=== PATIENT | female | born 1990 | race African-American/Black ===

== ENCOUNTER 2021-03-10 19:17 | Emergency (ER) | payer SELFPAY ==
--- NOTE | 2021-03-10 19:42 | ER ---
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 Reports HX of seizure. Coronavirus screen: Client denies travel out of the [place] in the last 14 days. At this time, the client does not indicate any symptoms associated with coronavirus-19. Ebola Screen: Patient negative for fever greater than or equal to 101.5 degrees Fahrenheit, and additional compatible Ebola Virus Disease symptoms Patient denies exposure to infectious person. Patient denies travel to an Ebola-affected area in the 21 days before illness onset. No symptoms or risks identified at this time. Initial Sepsis Screen: Does the patient meet any 2 criteria? No. Patient's initial sepsis screen is negative. Does the patient have a suspected source of infection? No. Patient's initial sepsis screen is negative. Risk Assessment: Do you want to hurt yourself or someone else? Patient reports no desire to harm self or others. Onset of symptoms was March 10, 2021. 19:22 Method Of Arrival: EMS: [facility] ca1 19:22 Acuity: GERRI 4 ca1 Triage Assessment: 19:24 General: Appears in no apparent distress. comfortable, Behavior is calm, cooperative, ca1 appropriate for age. Pain: Complains of pain in scalp Pain currently is 6 out of 10 on a pain scale. Neuro: Level of Consciousness is awake, alert, obeys commands, Oriented to person, place, time, situation. Cardiovascular: Heart tones S1 S2 present Capillary refill < 3 seconds Patient's skin is warm and dry. Respiratory: Airway is patent Respiratory effort is even, unlabored, Breath sounds are clear bilaterally. GI: Abdomen is flat, non-distended, Bowel sounds present X 4 quads. Abd is soft and non tender X 4 quads. : No signs and/or symptoms were reported regarding the genitourinary system. Derm: Skin is intact, is healthy with good turgor, Skin is pink, warm \\T\\ dry. Musculoskeletal: Circulation, motion, and sensation intact. Capillary refill < 3 seconds. 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 - Social history:: Smoking status: Patient reports the use of cigarette tobacco products, smokes one pack cigarettes per day. - Family history:: not pertinent. Screenin:26 Abuse screen: Denies threats or abuse. Denies injuries from another. Nutritional ca1 screening: No deficits noted. Tuberculosis screening: No symptoms or risk factors identified. Fall Risk Secondary diagnosis (15 points) seizures. Assessment: 19:26 Reassessment: see triage notes. ca1 19:39 Reassessment: Pt with family. Walk out of the room and was heading out. Dr. Orellana ca1 spoke with pt and family. Pt refused test and states, "I am going to check myself out and will have an appointment with my PCP in [place]". Psych: 19:41 [place] Suicide Severity Screening: unable to obtain, pt refused test and discharged. ca1 Vital Signs: 19:25 BP 111 / 75; Pulse 80; Resp 16 S; Pulse Ox 100% on R/A; Weight 58.97 kg (R); Height 5 ca1 ft. 5 in. (165.10 cm) (R); 19:26 BP 111 / 78 RA Supine (auto/reg); Pulse 77 RA; Resp 18 S; Pulse Ox 100% on R/A; mb4 19:43 Temp 98.6(TE); ca1 19:25 Body Mass Index 21.63 (58.97 kg, 165.10 cm) ca1 ED Course: 19:18 Patient arrived in ED. cf2 19:21 Brooke Garcia, RN is Primary Nurse. ca1 19:23 Triage completed. ca1 19:24 Arm band placed on right wrist. ca1 19:26 Bed in low position. Call light in reach. Side rails up X 1. Warm blanket given. mb4 19:26 Seizure precautions initiated. ca1 19:26 No provider procedures requiring assistance completed. ca1 19:33 Saeed Orellana MD is Attending Physician. anna 19:40 Chi Weber MD is Referral Physician. [facility] Administered Medications: No medications were administered Outcome: 19:41 Discharge ordered by . anna 19:43 Discharged to home ambulatory, with family. em 19:43 Condition: stable 19:43 Discharge instructions given to patient, Instructed on discharge instructions, follow up and referral plans. Demonstrated understanding of instructions, follow-up care. 19:43 Patient left the ED. em Signatures: Saeed Orellana MD MD cha Munoz, Edgar RN RN Adela Reeves mb4 Brooke Garcia RN RN [facility] Pranav Trindiad 2
--- NOTE | 2021-03-10 19:42 | EDPHYS ---
Physician Documentation [facility] Name: Iris Schaefer Age: 30 yrs Sex: Female : 1990 Arrival Date: 03/10/2021 Time: 19:18 Bed 23 Private MD: ED Physician Saeed Orellana HPI: 03/10 19:39 This 30 yrs old Black Female presents to ER via EMS with complaints of Psych Problem, anna Probable Seizure. 19:39 The patient presents to the emergency department with anxiety, over unknown anna circumstances. Onset: The symptoms/episode began/occurred just prior to arrival. Past psychiatric history: Prior diagnosis: no previous psychiatric diagnosis known. Associated signs and symptoms: The patient has no apparent associated signs or symptoms. Severity of symptoms: At their worst the symptoms were mild in the emergency department the symptoms are unchanged. The patient has experienced similar episodes in the past, a few times. 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 - Social history:: Smoking status: Patient reports the use of cigarette tobacco products, smokes one pack cigarettes per day. - Family history:: not pertinent. ROS: 19:39 Constitutional: Negative for fever, chills, and weight loss, Eyes: Negative for injury, anna pain, redness, and discharge, ENT: Negative for injury, pain, and discharge, Neck: Negative for injury, pain, and swelling, Cardiovascular: Negative for chest pain, palpitations, and edema, Respiratory: Negative for shortness of breath, cough, wheezing, and pleuritic chest pain, Abdomen/GI: Negative for abdominal pain, nausea, vomiting, diarrhea, and constipation, Back: Negative for injury and pain, : Negative for injury, bleeding, discharge, and swelling, MS/Extremity: Negative for injury and deformity, Skin: Negative for injury, rash, and discoloration, Neuro: Negative for headache, weakness, numbness, tingling, and seizure, Psych: Negative for depression, anxiety, suicide ideation, homicidal ideation, and hallucinations, Allergy/Immunology: Negative for hives, rash, and allergies, Endocrine: Negative for neck swelling, polydipsia, polyuria, polyphagia, and marked weight changes, Hematologic/Lymphatic: Negative for swollen nodes, abnormal bleeding, and unusual bruising. Exam: 19:39 Constitutional: This is a well developed, well nourished patient who is awake, alert, anna and in no acute distress. Head/Face: Normocephalic, atraumatic. Eyes: Pupils equal round and reactive to light, extra-ocular motions intact. Lids and lashes normal. Conjunctiva and sclera are non-icteric and not injected. Cornea within normal limits. Periorbital areas with no swelling, redness, or edema. ENT: Nares patent. No nasal discharge, no septal abnormalities noted. Tympanic membranes are normal and external auditory canals are clear. Oropharynx with no redness, swelling, or masses, exudates, or evidence of obstruction, uvula midline. Mucous membranes moist. Neck: Trachea midline, no thyromegaly or masses palpated, and no cervical lymphadenopathy. Supple, full range of motion without nuchal rigidity, or vertebral point tenderness. No Meningismus. Chest/axilla: Normal chest wall appearance and motion. Nontender with no deformity. No lesions are appreciated. Cardiovascular: Regular rate and rhythm with a normal S1 and S2. No gallops, murmurs, or rubs. Normal PMI, no JVD. No pulse deficits. Respiratory: Lungs have equal breath sounds bilaterally, clear to auscultation and percussion. No rales, rhonchi or wheezes noted. No increased work of breathing, no retractions or nasal flaring. Abdomen/GI: Soft, non-tender, with normal bowel sounds. No distension or tympany. No guarding or rebound. No evidence of tenderness throughout. Back: No spinal tenderness. No costovertebral tenderness. Full range of motion. Female : Normal external genitalia. Skin: Warm, dry with normal turgor. Normal color with no rashes, no lesions, and no evidence of cellulitis. MS/ Extremity: Pulses equal, no cyanosis. Neurovascular intact. Full, normal range of motion. Neuro: Awake and alert, GCS 15, oriented to person, place, time, and situation. Cranial nerves II-XII grossly intact. Motor strength 5/5 in all extremities. Sensory grossly intact. Cerebellar exam normal. Normal gait. Psych: Awake, alert, with orientation to person, place and time. Behavior, mood, and affect are within normal limits. Vital Signs: 19:25 BP 111 / 75; Pulse 80; Resp 16 S; Pulse Ox 100% on R/A; Weight 58.97 kg (R); Height 5 ca1 ft. 5 in. (165.10 cm) (R); 19:26 BP 111 / 78 RA Supine (auto/reg); Pulse 77 RA; Resp 18 S; Pulse Ox 100% on R/A; mb4 19:43 Temp 98.6(TE); ca1 19:25 Body Mass Index 21.63 (58.97 kg, 165.10 cm) ca1 MDM: 19:33 Patient medically screened. [facility] 03/10 19:34 Order name: Acetaminophen [facility] 03/10 19:34 Order name: Basic Metabolic Panel [facility] 03/10 19:34 Order name: Seizure Precautions; Complete Time: 19:36 anna Administered Medications: No medications were administered Disposition Summary: 03/10/21 19:41 Discharge Ordered Location: Home anna Problem: new anna Symptoms: have improved anna Condition: Stable anna Diagnosis - Other specified anxiety disorders anna Followup: anna - With: Private Physician - When: 2 - 3 days - Reason: Recheck today's complaints, Continuance of care, Re-evaluation by your physician Followup: anna - With: Chi Weber MD - When: 2 - 3 days - Reason: Recheck today's complaints, Re-evaluation by your physician Discharge Instructions: - Discharge Summary Sheet [facility] - Managing Anxiety, Adult anna Forms: - Medication Reconciliation Form [facility] - Thank You Letter [facility] - Antibiotic Education [facility] - Prescription Opioid Use [facility] Signatures: Dispatcher [employer] Saeed Arenas MD MD cha Acob, Cheryl, RN RN ca1 Corrections: (The following items were deleted from the chart) 19:42 19:34 EKG - Nurse/Tech ordered. [facility] ca1 19:42 19:34 Urine Test ordered. [facility] ca1 19:43 19:34 IV Saline Lock ordered. [facility] ca1 19:43 19:34 Labs collected and sent ordered. [facility] ca1 19:43 19:34 Suicide Screening ([place]) ordered. [facility] ca1 19:43 19:34 Urine Dipstick-Ancillary ordered. [facility] ca1 19:43 19:35 PROTIME (+INR)+COAG.LAB.BRZ ordered. EDMS EDMS 19:35 PTT, ACTIVATED+COAG.LAB.BRZ ordered. EDMS EDMS 19:35 URINE DRUG SCREEN+CHEM UR.LAB.BRZ ordered. EDMS EDMS
[2021-03-10 19:47] VITALS: O2SAT 100
[2021-03-10 19:49] VITALS: BP 111/78
[2021-03-10 19:50] VITALS: TEMP 98.6
== END 2021-03-10 19:43 | disposition home or self-care (01) ==
LOC: ER 19:17
DX: F41.8 Other specified anxiety disorders (principal); F17.210 Nicotine dependence, cigarettes, uncomplicated
CPT/HCPCS: 99283